=== PATIENT | male | born 1995 | race Caucasian/White ===

== ENCOUNTER 2017-03-28 17:57 | Emergency (ER) | payer BC, OTHER ==
[2017-03-28 18:04] VITALS: BP 137/86
--- NOTE | 2017-03-28 18:09 | EDM.PDOC ---
ED HPI GENERAL MEDICAL PROBLEM - General Chief Complaint: Upper Extremity Injury/Pain Stated Complaint: right index finger crush injury Time Seen by Provider: 03/28/17 18:00 Source of Information: Reports: Family (Mother), Old Records ([facility] EMR. No paper hospital chart available.) History Limitations: Reports: No Limitations - History of Present Illness INITIAL COMMENTS - FREE TEXT/NARRATIVE: The patient drove himself to the emergency room via private automobile for evaluation of a Workmen's Compensation injury, which occurred at about 17:30 hours this afternoon. The patient accidentally caught his right second finger in the railing top of a combine while working on it at [employer] in [place] with no history of paresthesias, foreign body, neurological deficits, or other complaints or injuries. No recent history of abdominal pain, heartburn, nausea, diarrhea, melena, gross hematochezia, or any food intolerance, including fatty foods, etc.. The patient also denies any recent fever, cough, wheezing, dyspnea , etc.. He is right-handed and has not taken any medications for his symptoms. He rates his discomfort as a 2/10 throbbing pain Onset: Today, Sudden Onset Date: 03/28/17 Onset Time: 17:30 Duration: Constant Location: Reports: Upper Extremity, Right. 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 [No Known Home Meds] 03/13/14 [History] Past Medical History Musculoskeletal History: Reports: Fracture, Osteoarthritis, RA, Other (See Below ) Other Musculoskeletal History: Right olecranon fracture on 09/17/16 her rheumatoid arthritis as a child with no current medical therapy - Past Surgical History HEENT Surgical History: Reports: Oral Surgery, Tonsillectomy, Other (See Below) Other HEENT Surgeries/Procedures: [place] teeth extraction at age 16 Social & Family History - Family History Family Medical History: Noncontributory - Tobacco Use Smoking Status *Q: Never Smoker Smoking Cessation Information Provided To Patient: No Second Hand Smoke Exposure: No Second Hand Smoke Education Provided: No - Caffeine Use Caffeine Use: Reports: Soda - Alcohol Use Alcohol Use History: Yes Days Per Week of Alcohol Use: 1 (No previous DWIs, problems with alcohol abuse, etc.) Number of Drinks Per Day: 10 (Usually beer) Total Drinks Per Week: 10 Alcohol Use in Last Twelve Months: Yes Alcohol Use Frequency: Binges, Socially - Recreational Drug Use Recreational Drug Use: No Drug Use in Last 12 Months: No Recreational Drug Type: Denies: Amphetamines (Speed), Cocaine, Heroin, Inhalants (Glues, Solvents, Aerosols), LSD (Acid), Marijuana/Hashish, Methamphetamine, Methaqualone, Morphine - Living Situation & Occupation Living situation: Reports: Single (No children), Alone 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 ED EXAM, GENERAL - Physical Exam Exam: See Below Exam Limited By: No Limitations General Appearance: Alert, WD/WN, No Apparent Distress Head: Atraumatic, Normocephalic Neck: Normal Inspection, Supple, Non-Tender, Full Range of Motion. No: Lymphadenopathy (L), Lymphadenopathy (R), Thyromegaly Respiratory/Chest: No Respiratory Distress, Lungs Clear, Normal Breath Sounds, No Accessory Muscle Use, Chest Non-Tender. No: Pleural Rub, Retractions Cardiovascular: Normal Peripheral Pulses, Regular Rate, Rhythm, No Edema, No Gallop, No JVD, No Murmur, No Rub. No: Gallop/S3, Gallop/S4, Friction Rub Peripheral Pulses: 4+: Radial (L), Radial (R) GI/Abdominal: Normal Bowel Sounds, Soft, Non-Tender, No Organomegaly, No Distention, No Abnormal Bruit, No Mass, Pelvis Stable (Male) Exam: Deferred Rectal (Males) Exam: Deferred Back Exam: Normal Inspection, Full Range of Motion. No: CVA Tenderness (L), CVA Tenderness (R), Muscle Spasm Extremities: No Pedal Edema, Normal Capillary Refill, Limited Range of Motion ( Mild decreased range of motion of the distal phalanx of digit #2 of the right hand with mild localized swelling and minimal ecchymosis mostly at the DIP, no crepitation, deformity, etc.) Neurological: Alert, Oriented, CN II-XII Intact, Normal Cognition, Normal Gait, No Motor/Sensory Deficits Psychiatric: Normal Affect, Normal Mood Skin Exam: Warm, Intact, Ecchymosis (As above). No: Petechiae, Wound/Incision Lymphatic: No Adenopathy ED TRAUMA EXTREMITY PROCEDURES - Splinting Right 2nd Digit Pre-Procedure NV Status: Normal Post-Procedure NV Status: Normal Splint Material: Aluminum-Foam Splint Design: Other (Flexor and extensor padded) Applied & Form Fitted By: Nurse Provider Post-Splint Application NV Check: NV Status Normal, Good Position Complications: No Course - Vital Signs Last Recorded V/S: Last Vital Signs Temp 37.3 C 03/28/17 18:03 Pulse 78 03/28/17 18:03 Resp 14 03/28/17 18:03 BP 137/86 03/28/17 18:03 Pulse Ox 99 03/28/17 18:03 Vital Signs - 24 hr 03/28/17 18:03 Temperature [ 37.3 C Oral] Pulse, 78 Peripheral [ Left Pulse Oximetry] Respiratory 14 Rate Blood Pressure 137/86 [Right Upper Arm] O2 Sat by Pulse 99 Oximetry - Orders/Labs/Meds Orders: Active Orders 24 hr Category Date Time Status Fingers Second Digit Rt F6 [CR] Stat Exams 03/28/17 18:09 Taken Durable Medical Equipment for Discharge [DME for Oth 03/28/17 18:33 Ordered Discharge] [COMM] Routine Obtain Past Medical Record [OM.PC] Routine Oth 03/28/17 18:09 Active Labs: None Meds: None - Radiology Interpretation Free Text/Narrative:: X-rays of digit #2 of the right hand, 3 views, were normal with no evidence of fracture, foreign body, subluxation, etc. Departure - Departure Time of Disposition: 18:45 Disposition: Home, Self-Care 01 Condition: Good Clinical Impression: Osteoarthritis Finger contusion Qualifiers: Encounter type: initial encounter Finger: index finger Damage to nail status: without damage Laterality: right Qualified Code(s): S60.021A - Contusion of right index finger without damage to nail, initial encounter - Discharge Information Instructions: Cast or Splint Care, [id number], Contusion, [id number] Referrals: PCP,None [Primary Care Provider] - Forms: ED Department Discharge, ED Return to Work/School Form Additional Instructions: 1. Follow-up with your regular provider in one week for reevaluation and adjustment of your current work excuse. Repeat x-rays depending on her symptoms and clinical course 2. Tylenol 650 mg by mouth every 4 hours and/or OTC ibuprofen 2-3 tabs by mouth every 6 hours with food as directed./needed. 3. Work excuse- See Form 4. BenGay or equivalent, heating pad, and/or ice packs as directed. 5. Activity restrictions as discussed 6. Wear finger splint at all times with exception of bathing until released by your regular provider - Problem List & Annotations (1) Finger contusion SNOMED Code(s): 84756293 Code(s): S60.00XA - CONTUSION OF UNSP FINGER WITHOUT DAMAGE TO NAIL, INIT ENCNTR Status: Acute Priority: High Onset Date: 03/28/17 Annotation/ Comment:: Symptomatic relief as per discharge instructions with finger splint applied today. Activity restrictions, etc. discussed. Work excuse and Workmen's Compensation forms were completed. Qualifiers: Encounter type: initial encounter Finger: index finger Damage to nail status: without damage Laterality: right Qualified Code(s): S60.021A - Contusion of right index finger without damage to nail, initial encounter (2) Osteoarthritis SNOMED Code(s): 307440336 Code(s): M19.90 - UNSPECIFIED OSTEOARTHRITIS, UNSPECIFIED SITE Status: Chronic Priority: Low Annotation/Comment:: History of rheumatoid arthritis as a child with symptoms currently nonproblematic and not requiring any therapy , including OTC NSAIDs, etc. - Problem List Review Problem List Initiated/Reviewed/Updated: Yes - My Orders Last 24 Hours: My Active Orders 03/28/17 18:09 Fingers Second Digit Rt F6 [CR] Stat Obtain Past Medical Record [OM.PC] Routine 03/28/17 18:33 Durable Medical Equipment for Discharge [DME for Discharge] [COMM] Routine - Assessment/Plan Last 24 Hours: My Active Orders 03/28/17 18:09 Fingers Second Digit Rt F6 [CR] Stat Obtain Past Medical Record [OM.PC] Routine 03/28/17 18:33 Durable Medical Equipment for Discharge [DME for Discharge] [COMM] Routine Assessment:: As above Plan: As above. Extensive precautions were given to the patient and his mother, who are in agreement with the treatment plan. See Patient Instructions for further treatment and plan.
== END 2017-03-28 18:45 | disposition home or self-care (01) ==
LOC: LL.ED 17:57
DX: S60.021A Contusion of right index finger without damage to nail, initial encounter (principal); M19.90 Unspecified osteoarthritis, unspecified site; Z98.890 Other specified postprocedural states; W23.1XXA Caught, crushed, jammed, or pinched between stationary objects, initial encounter
CPT/HCPCS: 73140-F6; 99283; L3999